=== PATIENT | female | born 1945 ===

== ENCOUNTER 2018-11-12 14:51 | Emergency (ER) | payer OTHER ==
[2018-11-12 15:52] VITALS: TEMP 97.8
[2018-11-12] MEDS ORDERED: Sodium Chloride 0.9% 1,000 ML IV STA (17:20)
--- NOTE | 2018-11-12 17:25 | ED PDOC ---
HPI: General Adult Time Seen by Provider: 11/12/18 17:10 Chief Complaint (Nursing): Dizziness/Lightheaded Chief Complaint (Provider): high blood sugar History Per: Patient, Scaleman (natacha [id number]) History/Exam Limitations: no limitations Onset/Duration Of Symptoms: Days (2-3) Current Symptoms Are (Timing): Intermittent Episodes Severity: Moderate Recently: Treated By A Physician Additional Complaint(s): 73yo female from [place] arrived here yesterday notes intermittent high blood sugars to approx 320, takes PO metformin and glipizide, notes dry mouth and some generalized weakness, denies fever, urinary symptoms, cough or sore throat. Does not use insulin. Was in ER in [place] several days ago, given IVF for h yperglycemia and DC. Past Medical History Reviewed: Historical Data, Nursing Documentation, Vital Signs Vital Signs: Last Vital Signs Temp 97.8 F 11/12/18 15:52 Pulse 73 11/12/18 15:52 Resp 16 11/12/18 15:52 BP 123/73 11/12/18 15:52 Pulse Ox 96 11/12/18 15:52 Primary Care Provider: FAMILY PROVIDER,NO - Medical History PMH: Depression, Diabetes, HTN Other PMH: fibrolyalgia - Family History Family History: States: Unknown Family Hx - Living Arrangements Living Arrangements: Other - Social History Current smoker - smoking cessation education provided: No - Home Medications Home Medications: Ambulatory Orders Medication Instructions Recorded Cephalexin [cephalexin] 500 mg PO BID #10 cap 11/12/18 - Allergies Allergies/Adverse Reactions: Allergies Allergy/AdvReac Type Severity Reaction Status Date / Time enalapril Allergy ANGIOEDEMA Verified 11/12/18 15:58 Review of Systems ROS Statement: Except As Marked, All Systems Reviewed And Found Negative Constitutional: Positive for: Weakness. Negative for: Fever, Weight loss ENT: Negative for: Ear Pain Cardiovascular: Negative for: Chest Pain Respiratory: Negative for: Cough, Shortness of Breath Gastrointestinal: Negative for: Vomiting, Abdominal Pain Genitourinary Female: Negative for: Dysuria Musculoskeletal: Negative for: Neck Pain Skin: Negative for: Rash Neurological: Negative for: Weakness, Numbness Psych: Negative for: Anxiety Physical Exam - Reviewed Nursing Documentation Reviewed: Yes Vital Signs Reviewed: Yes - Physical Exam Appears: Positive for: Well, Non-toxic, No Acute Distress Head Exam: Positive for: ATRAUMATIC, NORMAL INSPECTION, NORMOCEPHALIC Skin: Positive for: Normal Color, Warm, DRY Eye Exam: Positive for: EOMI, Normal appearance, PERRL ENT: Positive for: Normal ENT Inspection Neck: Positive for: Normal, Painless ROM Cardiovascular/Chest: Positive for: Regular Rate, Rhythm Respiratory: Positive for: CNT, Normal Breath Sounds Pulses-Radial (L): 3+/4+ Pulses-Radial (R): 3+/4+ Gastrointestinal/Abdominal: Positive for: Soft. Negative for: Tenderness, Guarding Back: Positive for: Normal Inspection Extremity: Positive for: Normal ROM Neurological/Psych: Positive for: Awake, Alert, Normal Tone - Laboratory Results Result Diagrams: 11/12/18 17:29 11/12/18 17:29 - ECG O2 Sat by Pulse Oximetry: 96 Medical Decision Making Medical Decision Making: labs reviewed mild hyperglycemia small UTI start keflex UTI possible cause of hyperglycemia returning to [place] this weekend Disposition - Clinical Impression Clinical Impression: UTI (urinary tract infection), Hyperglycemia - Patient ED Disposition Is Patient to be Admitted: No Counseled Patient/Family Regarding: Studies Performed, Diagnosis, Need For Followup, Rx Given - Disposition Disposition: Routine/Home Disposition Time: 18:30 Condition: STABLE Prescriptions: Cephalexin [cephalexin] 500 mg PO BID #10 cap Instructions: Urinary Tract Infections in Adults, Hyperglycemia, Adult (DC) Forms: [facility] (Mongolian) Print Language: [place]
[2018-11-12 17:37] LABS: BASO % 0.6 % (0.0-2.0); EOS # 0.1 K/uL (0.0-0.7); EOS % 1.8 % (0.0-4.0); HEMOGLOBIN 13.5 g/dL (12.0-16.0); LYMPH # 2.7 K/uL (1.0-4.3); LYMPH % 33.3 % (20.0-40.0); MEAN CELL VOLUME 87.2 fl (81.0-99.0); MEAN CORPUSCULAR HEMOGLOBIN 27.9 pg (27.0-31.0); MEAN PLATELET VOLUME 8.3 fl (7.2-11.7); MONO # 0.6 K/uL (0.0-0.8); MONO % 6.9 % (0.0-10.0); NEUT # 4.6 K/uL (1.8-7.0); NEUT % 57.4 % (50.0-75.0); NRBC % 0.1 % (0.0-0.0); RBC 4.85 Mil/uL (3.80-5.20); RED CELL DISTRIBUTION WIDTH 14.1 % (11.5-14.5); WHITE BLOOD COUNT 8.1 K/uL (4.8-10.8)
[2018-11-12 17:45] LABS: SQUAMOUS EPITHIAL 5 /hpf (0-5); URINE BACTERIA RARE (<OCC); URINE BILIRUBIN NEGATIVE (NEGATIVE); URINE BLOOD NEGATIVE (NEGATIVE); URINE CLARITY CLOUDY (Clear); URINE COLOR YELLOW (YELLOW); URINE GLUCOSE (UA) NEG (NEGATIVE); URINE LEUKOCYTE ESTERASE TRACE Leu/uL (Negative); URINE PROTEIN 30 mg/dL (NEGATIVE); URINE UROBILINOGEN 0.2-1.0 mg/dL (0.2-1.0)
[2018-11-12 17:51] LABS: ALB/GLOB RATIO 1.3 (1.0-2.1); ALBUMIN 4.3 g/dL (3.5-5.0); ALT/SGPT 24 U/L (9-52); AST/SGOT 29 U/L (14-36); BLOOD UREA NITROGEN 21 mg/dl (7-17); CALCIUM 9.6 mg/dL (8.4-10.2); GFR NON-AFRICAN AMERICAN > 60
[2018-11-12 19:10] VITALS: BP 120/70; PULSE 70; RESP 20
--- NOTE | 2018-11-13 10:54 | CARD ---
APPROVED REPORT Date of service: 11/12/2018 EKG Measurement Heart [id number] <Conclusion> Normal sinus rhythm Nonspecific ST and T wave abnormality Abnormal ECG
[2018-11-13 17:46] VITALS: O2SAT 96
== END 2018-11-12 19:12 | disposition home or self-care (01) ==
LOC: H.ER 14:51
DX: N39.0 Urinary tract infection, site not specified (principal); E11.65 Type 2 diabetes mellitus with hyperglycemia
CPT/HCPCS: 80053; 81003; 82948; 84484; 85025; 93005; 96360; 99285; J7030